=== PATIENT | male | born 1965 | race Caucasian/White ===

== ENCOUNTER 2018-02-14 08:13 | Emergency (ER) | payer BC ==
--- OUTSIDE RECORDS SUMMARY | 2018-02-14 08:25 | XMS REPORT ---
:1965 External Reference #:[id number] Author Organization [employer] Address [address] [place] [address] Phone [phone] Care Team Providers Name Role Phone Suarez, Mario DO Care Team Information Continuing Education Director Unavailable Suarez, Mario DO Primary Care Physician Unavailable Payers Type Date Identification Numbers Payment Provider Subscriber Health Maintenance Policy Number: Dany Archie Baltazar Pollack [email or web address] Organization (HMO) [id number] [facility] PayID: [id number] [address] [place] [address] Problems Description No Information Family History Date Family Member(s) Problem(s) Comments Father due to Auto Accident () Mother Hearing Loss Mother Polio First Brother Asthma And Allergies Social History Type Date Description Comments Marital Status Occupation Patient Service Associate Cigarette Use Quit - age unknown ETOH Use Current Alcohol Use - 1-3 Days A Week. Recreational Drug Use Has Used In Past Smoking Patient has never smoked Allergies, Adverse Reactions, Alerts Date Description Reaction Status Severity Comments 03/05/2013 NKDA active Medications Medication Date Status Form Strength Qnty SIG Indications Ordering Provider Omeprazole Active Capsules DR 20mg 30caps 1 by Urbano, 018 mouth Boni, every M.D. day. No Active Hx Unknown Medications 013 - 018 Vital Signs Date Vital Result Comment 01/24/2018 Weight 196.00 lb Height 72 inches 6'0" BMI (Body Mass Index) 26.6 kg/m2 BP Systolic 106 mmHg BP Diastolic 71 mmHg Heart Rate 69 /min O2 % BldC Oximetry 97 % Body Temperature 97.5 F Pain Level 0 12/21/2017 Weight 190.00 lb Height 72 inches 6'0" BMI (Body Mass Index) 25.8 kg/m2 BP Systolic 114 mmHg BP Diastolic 80 mmHg Heart Rate 83 /min O2 % BldC Oximetry 97 % Body Temperature 97.5 F Boswell Score 3 Neck Circumference in inches 15.5 Pain Level 0 02/20/2017 Weight 201.00 lb Height 72 inches 6'0" BMI (Body Mass Index) 27.3 kg/m2 BP Systolic 124 mmHg BP Diastolic 78 mmHg Heart Rate 85 /min O2 % BldC Oximetry 99 % Body Temperature 98.6 F 03/05/2013 Weight 194.00 lb Height 72 inches 6'0" BMI (Body Mass Index) 26.3 kg/m2 BP Systolic 126 mmHg BP Diastolic 82 mmHg Heart Rate 66 /min O2 % BldC Oximetry 97 % Body Temperature 97.9 F Results Description No Information Procedures Date CPT Code Description Status 12/26/2017 64871 Sleep Staging 4Or More Para Completed 12/21/2017 58332 Fiberoptic Laryngoscopy,Diag. Completed 03/05/2013 94130 Fiberoptic Laryngoscopy,Diag. Completed Encounters Type Date Location Provider CPT E/M Dx Office Visit 12/21/2017 9:30a [place] [address] G47.9 R06.83 K21.9 Office Visit 02/20/2017 9:45a [place] [address] G57.81 Office Visit 03/05/2013 11:00a [place] [address] [phone] 786.09 Plan of Care 12/21/2017 - Cass Delgado NPG47.9 Sleep disorder, vncgcvbuqixE43.83 DpareqqA12.9 Gastro-esophageal reflux disease without esophagitisNew Orders:PSG - Sleep StudyNew Medication:Omeprazole 20 mg
[2018-02-14 08:36] VITALS: BP 109/78
--- NOTE | 2018-02-14 09:15 | RAD ---
Indication: RIGHT great toe pain following stubbing injury Sunday night. Comparison: No relevant prior exams available on the [facility] PACS for comparison. Technique: 3 views of the RIGHT great toe. REPORT AND IMPRESSION: #. Negative for fracture or malalignment. Mild osteophytosis and joint space narrowing at the first metatarsal phalangeal joint. Mild fusiform soft tissue swelling.
--- NOTE | 2018-02-14 09:24 | UC ---
Lower Extremity/Ankle HPI - HPI Summary HPI Summary: Pt states on Sunday was walking from a room to another in his house. He was gonig over a transition in the floor when he caught his right great toe. Pt sttes injury at MTP joint. Pt with progressive discomfort since. Pt states pain with walking. No open wounds. Pt concerned for fx. Pt has intermitently taken analgesia without little relief. Pt states pain with foot in shoe. No erythema. slight bruising. No other injuries no h/o gout. Pt is supposed to golf this weekend Pts medications reviewed this visit - History of Current Complaint Chief Complaint: UCLowerExtremity Stated Complaint: RT FOOT INJ Time Seen by Provider: 02/14/18 08:55 Hx Obtained From: Patient Pain Intensity: 7 - Allergies/Home Medications Allergies/Adverse Reactions: Allergies Allergy/AdvReac Type Severity Reaction Status Date / Time No Known Allergies Allergy Verified 02/14/18 08:27 PMH/Surg Hx/FS Hx/Imm Hx Previously Healthy: Yes - Surgical History Surgical History: Yes Surgery Procedure, Year, and Place: 3 X right knee surgery, double hernia - Family History Known Family History: Positive: None - Social History Occupation: Employed Full-time Lives: With Family Alcohol Use: Weekly Alcohol Amount: 5/WEEK Substance Use Type: None Smoking Status (MU): Never Smoked Tobacco Review of Systems Constitutional: Negative Skin: Bruising Musculoskeletal: Other: - right great toe All Other Systems Reviewed And Are Negative: Yes Physical Exam - Summary Physical Exam Summary: Vital Signs Reviewed: Yes A+Ox3, no distress Eyes: Conjunctiva Clear ENT: Hearing grossly normal neck: supple Respiratory: Positive: No respiratory distress, No accessory muscle use Cardiovascular: skin color reflect adequate perfusion Musculoskeletal Exam: right: + flex/ext knee + flex/ext ankle + great toe extension with tenderness at MTP + TTP volar aspect of great toe. no crepitus no pain along MT Neurological: Positive: Alert, + gross sensaiton Psychological: Positive: Normal Response To Family Skin: Positive: no rash, mild ecchymosis and edema lateral, inferior aspect right great toe at MTP Triage Information Reviewed: Yes Vital Signs: Initial Vital Signs Temp 97.7 F 02/14/18 08:28 Pulse 63 02/14/18 08:28 Resp 16 02/14/18 08:28 BP 109/78 02/14/18 08:28 Pulse Ox 100 02/14/18 08:28 Diagnostics - Radiology No standard instances Xray Interpretation: No Acute Changes - Patient Name: DEE REYNOLDS Medical Record# : [id number] Ordering Physician: Latonya Brantley MD Acct.#: [id number] : 1965 Age: 52 Sex: M Location: [facility] Exam Date: 02/14/18853 ADM Status: REG ER Order Information: TOE RIGHT GREAT Accession Number: [id number] CPT: 55475 Indication: RIGHT great toe pain following stubbing injury Sunday. Comparison: No relevant prior exams available on the [facility] PACS for comparison. Technique: 3 views of the RIGHT great toe. REPORT AND IMPRESSION: #. Negative for fracture or malalignment. Mild osteophytosis and joint space narrowing at the first metatarsal phalangeal joint. Mild fusiform soft tissue swelling. < Electronically signed by Yoni Hansen MD in OV> 02/14/18910 Dictated By: Yoni Hansen MD Dictated Date/Time: 02/14/18910 Transcribed Date/Time: 908 Copy to: CC:Latonya Brantley MD; Hakan Suarez DO [facility] [address] [place] [address] ph [phone] ph ([phone]) ph ([phone]) This report is only to be considered final once signed by the Provider(s) as displayed in the "<Electronically Signed by >" field (s). Absence of a signature indicates the report is in a draft status and still needs to be finalized. In the event this document was created by someone other than the signing Provider, the individual initiating the document will be listed in the "Entered by:" or "Dictated by:" bautista. 1 of 1 Radiology Interpretation Completed By: Radiologist Lower Extremity Course/Dx - Course Course Of Treatment: Pt with discomfort right great toe s/p stubbing on transition on floor. No other injuries. Considered gout in differential - noerythema, no tender to light touch, pain increased on posterior aspect - suspect contusion. Pt with tenderness and swelling great toe at MTP No open wounds. imaging neg fx. will give pot op shoe. pt declined crutches. ice. elevate. motrin/apap. ortho referral - Differential Dx/Diagnosis Provider Diagnoses: right great toe contusion Discharge - Sign-Out/Discharge Documenting (check all that apply): Patient Departure - Discharge Plan Condition: Stable Disposition: HOME Prescriptions: methylPREDNISolone [Medrol Dosepak 4 MG*] 1 mg PO .SEE VINCENZO INSTRUCTION #1 tab methylPREDNISolone [Medrol Dosepak 4 MG*] 4 mg PO .PER VINCENZO #1 tab.ds.pk Patient Education Materials: Foot Contusion (ED) Referrals: Dante Call MD [Medical Doctor] - Anna Howell MD [Medical Doctor] - Hakan Suarez DO [Primary Care Provider] - Additional Instructions: - Okay to alternate ibuprofen (advil, motrin) 600mg and tylenol 1000mg every 3 hours for pain. take with food - take prednisone as prescribed until gone -apply ice (20 min at a time) every 2-3 hours for the next 2 days -wear shoes with good support -Elevate your leg - this will help with swelling and pain - You have been given contact information for the orthopedic provider. Call to schedule a follow-up appointment. Contact the orthopedic provider, return here, or call your doctor with questions or concerns - Billing Disposition and Condition Condition: STABLE Disposition: Home
== END 2018-02-14 09:56 | disposition home or self-care (01) ==
LOC: UCCORT 08:13
DX: S90.111A Contusion of right great toe without damage to nail, initial encounter (principal); W23.0XXA Caught, crushed, jammed, or pinched between moving objects, initial encounter; Y93.01 Activity, walking, marching and hiking; Y92.009 Unspecified place in unspecified non-institutional (private) residence as the place of occurrence of the external cause
CPT/HCPCS: 99213; G0463

== ENCOUNTER 2018-07-07 08:25 | Emergency (ER) | payer BC ==
[2018-07-07 08:43] VITALS: BP 108/76
--- NOTE | 2018-07-07 09:03 | UC ---
Throat Pain/Nasal Adi HPI - HPI Summary HPI Summary: Pt presents with c/o right side sinus pressure pain and swelling X 5 weeks. Pt reports that "this occurs every year at the same time" x 5 years. Pt states that pain is "traveling" and denies fever or recent dental work. - History of Current Complaint Chief Complaint: UCRespiratory Stated Complaint: SINUS PRESSURE Time Seen by Provider: 07/07/18 08:48 Hx Obtained From: Patient Onset/Duration: Gradual Onset, Lasting Weeks, Still Present Severity: Moderate Pain Intensity: 0 Associated Signs & Symptoms: Positive: Sinus Discomfort - Epiglottits Risk Factors Epiglottis Risk Factors: Negative - Allergies/Home Medications Allergies/Adverse Reactions: Allergies Allergy/AdvReac Type Severity Reaction Status Date / Time No Known Allergies Allergy Verified 07/07/18 08:36 Home Medications: Home Medications Acetaminophen TAB* [Tylenol TAB*] 650 mg PO Q4H PRN 07/07/18 [History Confirmed 07/07/18] Eye Drops For [place] 1 drop BOTH EYES BEDTIME 07/07/18 [History] Ibuprofen TAB* [Advil TAB*] 400 mg PO Q6H PRN 07/07/18 [History Confirmed ] PMH/Surg Hx/FS Hx/Imm Hx Previously Healthy: Yes - Surgical History Surgical History: Yes Surgery Procedure, Year, and Place: 3 X right knee surgery, double hernia - Family History Known Family History: Positive: Cardiac Disease - Social History Occupation: Employed Full-time Lives: With Family Alcohol Use: Weekly Alcohol Amount: 5/WEEK Substance Use Type: None Smoking Status (MU): Never Smoked Tobacco Have You Smoked in the Last Year: No Review of Systems All Other Systems Reviewed And Are Negative: Yes Constitutional: Positive: Negative Skin: Positive: Negative Eyes: Positive: Other - glaucoma ENT: Positive: Sinus Pain/Tenderness Respiratory: Positive: Negative Cardiovascular: Positive: Negative Gastrointestinal: Positive: Negative Genitourinary: Positive: Negative Motor: Positive: Negative Neurovascular: Positive: Negative Musculoskeletal: Positive: Negative Neurological: Positive: Negative Psychological: Positive: Negative Is Patient Immunocompromised?: No Physical Exam Triage Information Reviewed: Yes Appearance: Well-Appearing Vital Signs: Initial Vital Signs Temp 98 F 07/07/18 08:39 Pulse 74 07/07/18 08:39 Resp 15 07/07/18 08:39 BP 108/76 07/07/18 08:39 Pulse Ox 98 07/07/18 08:39 Vital Signs Reviewed: Yes Eye Exam: Normal ENT: Positive: Other - right maxillary swelling, c/o tenderness right upper mandible, generalized Dental Exam: Normal Neck exam: Normal Respiratory Exam: Normal Cardiovascular Exam: Normal Musculoskeletal Exam: Normal Neurological Exam: Normal Psychological Exam: Normal Skin Exam: Normal Throat Pain/Nasal Course/Dx - Course Assessment/Plan: Pt advised to follow up with pcp and ent specialist. - Differential Dx/Diagnosis Differential Diagnosis/HQI/PQRI: Sinusitis, URI Provider Diagnosis: Sinusitis Discharge - Sign-Out/Discharge Documenting (check all that apply): Patient Departure All imaging exams completed and their final reports reviewed: No Studies - Discharge Plan Condition: Stable Disposition: HOME Prescriptions: Amoxicillin PO (*) [Amoxicillin 875 MG (*)] 875 mg PO Q12H #20 tab Cetirizine* [ZyrTEC 10 MG TAB*] 10 mg PO DAILY #10 tab Patient Education Materials: Sinusitis (ED) Referrals: Porter Manuel MD [Medical Doctor] - If Needed Hakan Suarez DO [Primary Care Provider] - As Soon As Possible - Billing Disposition and Condition Condition: STABLE Disposition: Home - Attestation Statements Provider Attestation: Per institutional requirements, I have reviewed the chart, however, I was not consulted specifically or made aware of this patient by the midlevel provider. I did not personally evaluate, interact with , or disposition this patient.
== END 2018-07-07 09:11 | disposition home or self-care (01) ==
LOC: UCCORT 08:25
DX: J32.9 Chronic sinusitis, unspecified (principal)
CPT/HCPCS: 99212; G0463